=== PATIENT | female | born 1980 | race African-American/Black ===

== ENCOUNTER → 2016-10-30 | Outpatient (CLI) | payer OTHER ==
--- NOTE | 2016-10-30 15:14 | KCIC ---
PROCEDURE MR of the right knee HISTORY Right knee pain. Pain is chronic but worse the last few months. Swelling. COMPARISON None TECHNIQUE Standard multiplanar sequences are obtained. FINDINGS There is mild motion degradation. Mild signal within the medial meniscus. There is subtle violation of the undersurface on a single sagittal slice, but that may be exaggerated by the motion degradation. Signal identified within the lateral meniscus, particularly the posterior horn, with some distortion, compatible with a degenerative tear. The anterior and the posterior cruciate ligaments are intact. Medial collateral ligament is intact. Iliotibial band unremarkable. Fibular collateral ligament, biceps femorals tendon and popliteus tendon are intact. Extensor mechanism is intact. Small joint effusion. There is a tiny loose body identified just posterior to the popliteus in the popliteus recess measuring about 4 millimeters.. There also may be a small body identified within the anterior joint, although this may just represent some nodular fat, obscured due to the motion degradation. No bone lesion. No acute fracture. Severe chondromalacia at the posterior lateral tibial plateau, more moderate elsewhere at the medial and lateral compartments. Mild chondromalacia at the patella. No bone lesion or acute fracture. No significant Mi cyst. IMPRESSION 1. Lateral meniscal tear. 2. Possible medial meniscal tear although this finding may be exaggerated by the motion degradation. 3. Primary osteoarthritis. 4. 1 or 2 small loose bodies. Electronically signed by: Andrea Conti MD (Oct 30, 2016 15:13:40)
== END | disposition home or self-care (01) ==
LOC: KCIC MRI 13:50
PROVIDERS: ATTEND Family Medicine
DX: M25.561 Pain in right knee (principal); M17.11 Unilateral primary osteoarthritis, right knee; S83.281A Other tear of lateral meniscus, current injury, right knee, initial encounter
CPT/HCPCS: 73721

== ENCOUNTER → 2017-06-25 | Day surgery (SDC) | payer OTHER ==
[~2017-06-25] MED LIST: BUPIVACAINE MPF 0.5% 30 ML VIAL. ONE; DEXAMETHASONE SOD PHOS 20 MG/5 ML VIAL. ONE; EPINEPHrine VIAL 30 MG/30 ML VIAL ONE; LIDOCAINE 1% PF 30 ML VIAL. ONE; LIDOCAINE 2% PF Vial for OR 5 ML VIAL. ONE; MIDAZOLAM HCL/PF 2 MG/2 ML VIAL. ONE; ONDANSETRON PF 4 MG/2 ML VIAL. ONE; PROPOFOL 0 ML IV ONE; ceFAZolin 2GM PREMIX 2 GM/50 ML BAG IV ONE; fentaNYL PF VIAL 100 MCG/2 ML VIAL ONE
[2017-06-25 11:32] LABS: NEG OBC UR NEG; POS OBC UR POS
== END | disposition home or self-care (01) ==
LOC: SURG 10:48
PROVIDERS: ATTEND Orthopaedic Surgery Sports Medicine
DX: S83.281A Other tear of lateral meniscus, current injury, right knee, initial encounter (principal); Z53.8 Procedure and treatment not carried out for other reasons; X58.XXXA Exposure to other specified factors, initial encounter; Y93.89 Activity, other specified; Y92.89 Other specified places as the place of occurrence of the external cause; Y99.8 Other external cause status
CPT/HCPCS: 81025; J0171; J0690; J1100; J2250; J2405; J2704; J3010; J3490; J2001

== ENCOUNTER 2018-02-08 16:13 | Observation (INO) | payer OTHER ==
[2018-02-08 16:56] LABS: BILIRUBIN,URINE NEGATIVE (NEG); CLARITY,URINE CLEAR; COLOR,URINE YELLOW; GLUCOSE,URINE NEGATIVE (NEG); NITRITE,URINE NEGATIVE (NEG); PH,URINE 7.5; PROTEIN,URINE NEGATIVE (NEG-TRACE)
[2018-02-08 17:03] LABS: AMPHETAMINE/METHAMPHETAMINE NEG (NEG); BARBITURATES NEG (NEG); BENZODIAZEPINES NEG (NEG); CANNABINOIDS POS (NEG); COCAINE NEG (NEG); ETHANOL, URINE NEG (NEG); METHADONE NEG (NEG); OPIATES NEG (NEG); PHENCYCLIDINE NEG (NEG)
[2018-02-08 17:16] LABS: RBC,URINE RARE /HPF (0-2)
[2018-02-08 17:17] LABS: BACTERIA,URINE MANY /HPF (0-FEW); SQUAMOUS EPITHELIAL CELL,UR FEW /LPF
[2018-02-08] MEDS: BUTORPHANOL 2 MG/ML VIAL. IV (18:14)
[2018-02-08] MEDS: IV RINGERS,LACTATED 1000ML 1,000 ML IV (18:15)
[2018-02-08 18:26] LABS: ADD MAN DIFF? NO
[2018-02-08 18:29] LABS: BASO # 0.1 x10^3/uL (0.0-0.2); BASO % 1 % (0-3); EOS # 0.1 x10^3/uL (0.0-0.7); EOS % 1 % (0-3); HEMATOCRIT 29.3 % (36.0-47.0); LYMPH # 2.4 x10^3/uL (1.0-4.8); LYMPH % 25 % (24-48); MEAN CORPUSCULAR HEMOGLOBIN 25 pg (25-35); MEAN CORPUSCULAR HGB CONC 34 g/dL (31-37); MEAN CORPUSCULAR VOLUME 74 fL (79-100); MONO # 0.8 x10^3/uL (0.0-1.1); MONO % 8 % (0-9); NEUT # 6.2 x10^3uL (1.8-7.7); NEUT % 65 % (31-73); PLATELET COUNT 155 x10^3/uL (140-400); RED BLOOD COUNT 3.94 x10^6/uL (3.50-5.40); RED CELL DISTRIBUTION WIDTH 15.7 % (11.5-14.5); WHITE BLOOD COUNT 9.6 x10^3/uL (4.0-11.0)
[2018-02-08 19:17] LABS: ALBUMIN 2.4 g/dL (3.4-5.0); ALBUMIN/GLOBULIN RATIO 0.6 (1.0-1.7); ALK PHOS 181 U/L (46-116); ALT (SGPT) 11 U/L (14-59); ANION GAP 12 (6-14); AST (SGOT) 13 U/L (15-37); BLOOD UREA NITROGEN 8 mg/dL (7-20); BUN/CREATININE RATIO 13 (6-20); CALCIUM 8.6 mg/dL (8.5-10.1); CARBON DIOXIDE 22 mmol/L (21-32); CHLORIDE 107 mmol/L (98-107); CREATININE 0.6 mg/dL (0.6-1.0); GFR 135.4; GLUCOSE 78 mg/dL (70-99); POTASSIUM 3.7 mmol/L (3.5-5.1); SODIUM 141 mmol/L (136-145); TOTAL BILIRUBIN 0.4 mg/dL (0.2-1.0); TOTAL PROTEIN 6.6 g/dL (6.4-8.2)
[2018-02-08] MEDS: hydrOXYzine IM 50 MG/ML VIAL IM (20:46)
== END 2018-02-08 21:25 | disposition home or self-care (01) ==
LOC: 3 SO LND 16:13
DX: O62.9 Abnormality of forces of labor, unspecified (principal); O26.893 Other specified pregnancy related conditions, third trimester; R10.9 Unspecified abdominal pain; Z3A.37 37 weeks gestation of pregnancy
CPT/HCPCS: 36415; 80053; 80307; 81001; 85025; 87086; 96361; 96372; 96374; G0378; G0379; J3410; J7120

== ENCOUNTER 2018-02-13 18:15 | Observation (INO) | payer OTHER ==
[2018-02-13] MEDS: hydrOXYzine PAMOATE 25 MG CAPSULE PO (19:46)
== END 2018-02-13 19:45 | disposition home or self-care (01) ==
LOC: 3 SO LND 18:15
DX: O62.9 Abnormality of forces of labor, unspecified (principal); O99.89 Other specified diseases and conditions complicating pregnancy, childbirth and the puerperium; M54.9 Dorsalgia, unspecified; Z3A.38 38 weeks gestation of pregnancy
CPT/HCPCS: G0378; G0379; Q0177

== ENCOUNTER 2020-11-06 11:49 | Observation (INO) | payer OTHER ==
[2018-02-20 16:30] VITALS: BP 126/82
[~2020-11-06 11:49] MED LIST changes: -BUPIVACAINE MPF 0.5% 30 ML VIAL. ONE; -DEXAMETHASONE SOD PHOS 20 MG/5 ML VIAL. ONE; +DOCU-109 PO; -EPINEPHrine VIAL 30 MG/30 ML VIAL ONE; +IBUP800T19 PO; -LIDOCAINE 1% PF 30 ML VIAL. ONE; -LIDOCAINE 2% PF Vial for OR 5 ML VIAL. ONE; -MIDAZOLAM HCL/PF 2 MG/2 ML VIAL. ONE; -ONDANSETRON PF 4 MG/2 ML VIAL. ONE; +OXYC1TAB7 PO; -PROPOFOL 0 ML IV ONE; -ceFAZolin 2GM PREMIX 2 GM/50 ML BAG IV ONE; -fentaNYL PF VIAL 100 MCG/2 ML VIAL ONE
[2020-11-06] MEDS ORDERED: IV RINGERS,LACTATED 1000ML 1,000 ML IV SCH (12:45)
[2020-11-06 14:58] LABS: BILIRUBIN,URINE NEGATIVE (NEG); CLARITY,URINE CLOUDY; COLOR,URINE YELLOW; NITRITE,URINE POSITIVE (NEG); PROTEIN,URINE NEGATIVE (NEG-TRACE); UROBILINOGEN,URINE 0.2 mg/dL (0.2 mg/dL)
[2020-11-06 15:07] LABS: AMORPHOUS SEDIMENT,UR PRESENT /HPF; BACTERIA,URINE MODERATE /HPF (0-FEW); RBC,URINE OCC /HPF (0-2)
--- NOTE | 2020-11-06 15:11 | RAD ---
US OB LIMITED Clinical Indication: No heart tones detected. Pt reports she is 24 weeks . LMP 0 Comparison: None. Technique: Multiple grayscale images, color Doppler, and M-mode images of the uterus are obtained. Findings: There is a single intrauterine gestation in breech presentation. The placenta is anterior in location without evidence of placenta previa. The amount of amniotic fluid appears appropriate. Cervical maurisio gth is 3.9 cm. Biometrical data: BPD = 5.02 cm for 21 weeks 1 days. HC = 20.60 cm for 22 weeks 5 days. AC = 17.97 cm for 20 weeks 6 days. FL = 4.12 cm for 20 weeks 3 days. CI ratio = 77.0. HC/AC ratio = 1.15. FL/HC ratio = 20.0. FL/AC ratio = 22.9. Overall, the estimated sonographic gestational age is 22 weeks 4 days for an estimated date of delive ry of 03/08/2021. The estimated date of delivery provided by the last menstrual period is 02/26/2021. E stimated weight is 549 grams. The estimated heart rate is 140 beats per minute. Impression: Single live intrauterine gestation with estimated sonographic gestational age of 22 weeks 4 days. Electronically signed by: Yair Villa MD (11/06/2020 3:09 PM) [facility]
== END 2020-11-06 20:34 | disposition home or self-care (01) ==
LOC: 3 SO LND 11:49
PROVIDERS: ADMIT Obstetrics & Gynecology; ATTEND Obstetrics & Gynecology
DX: O99.891 Other specified diseases and conditions complicating pregnancy (principal); M54.9 Dorsalgia, unspecified; O26.892 Other specified pregnancy related conditions, second trimester; H92.02 Otalgia, left ear; R10.2 Pelvic and perineal pain; O62.9 Abnormality of forces of labor, unspecified; Z3A.24 24 weeks gestation of pregnancy; Z98.891 History of uterine scar from previous surgery
CPT/HCPCS: 59025; 76815; 81001; 87086; G0378; G0379

== ENCOUNTER 2020-11-06 15:31 | Emergency (ER) | payer OTHER ==
[~2020-11-06] VITALS: Ht 175.3 cm; Wt 100.9 kg
--- NOTE | 2020-11-06 15:49 | PHYS DOC ---
Past Medical History Past Medical History: No Pertinent History, Kidney Stone Past Surgical History: Other Additional Past Surgical Histo: lithotripsy, thyroidectomy Alcohol Use: None Drug Use: None General Adult EDM: Chief Complaint: EARACHE/EAR PAIN HPI: HPI: Patient is a 40 year old presented to the ER for evaluation of a lesion in front of left earlobe for about 2 weeks. NO pain. Review of Systems: Review of Systems: Constitutional: Denies fever or chills. [] Eyes: Denies change in visual acuity. [] HENT: Denies nasal congestion or sore throat. [] Respiratory: Denies cough or shortness of breath. [] Cardiovascular: Denies chest pain or edema. [] GI: Denies abdominal pain, nausea, vomiting, bloody stools or diarrhea. [] : Denies dysuria. [] Musculoskeletal: Denies back pain or joint pain. [] Integument: Denies rash. [] Neurologic: Denies headache, focal weakness or sensory changes. [] Endocrine: Denies polyuria or polydipsia. [] Lymphatic: Denies swollen glands. [] Psychiatric: Denies depression or anxiety. [] Heart Score: Risk Factors: Risk Factors: DM, Current or recent (<one month) smoker, HTN, HLP, family history of CAD, obesity. Risk Scores: Score 0 - 3: 2.5% MACE over next 6 weeks - Discharge Home Score 4 - 6: 20.3% MACE over next 6 weeks - Admit for Clinical Observation Score 7 - 10: 72.7% MACE over next 6 weeks - Early Invasive Strategies Allergies: Allergies: Allergies Coded Allergies Type Severity Reaction Last Updated Verified No Known Drug Allergies 12/05/16 No Physical Exam: PE: Constitutional: Well developed, well nourished, no acute distress, non-toxic appearance. [] HENT: Normocephalic, atraumatic, bilateral external ears normal, oropharynx moist, no oral exudates, nose normal. There is small nontender mass at the base of left tragus. Not tender to palpation, no redness. Eyes: PERRLA, EOMI, conjunctiva normal, no discharge. [] Neck: Normal range of motion, no tenderness, supple, no stridor. [] Skin: Warm, dry, no erythema, no rash. [] Back: No tenderness, no CVA tenderness. [] Extremities: No tenderness, no cyanosis, no clubbing, ROM intact, no edema. [] Neurologic: Alert and oriented X 3, normal motor function, normal sensory function, no focal deficits noted. [] Psychologic: Affect normal, judgement normal, mood normal. [] EKG: EKG: [] Radiology/Procedures: Radiology/Procedures: [] Course & Med Decision Making: Course & Med Decision Making Pertinent Labs and Imaging studies reviewed. (See chart for details) [] Dragon Disclaimer: Dragon Disclaimer: This electronic medical record was generated, in whole or in part, using a voice recognition dictation system. Departure Departure Impression: Primary Impression: Ganglion cyst Disposition: 01 DC HOME SELF CARE/HOMELESS Condition: STABLE Referrals: NO PCP (PCP) CK CAMPOS MD Please call this ENT doctor for follow up next week Patient Instructions: Ganglion Cyst KRISTINE ALMONTE DO Nov 06, 2020 15:49
[2020-11-06 16:10] VITALS: BP 134/76
== END 2020-11-06 16:10 | disposition home or self-care (01) ==
LOC: ER 15:31
DX: M67.48 Ganglion, other site (principal); H92.02 Otalgia, left ear; Z90.89 Acquired absence of other organs; Z98.890 Other specified postprocedural states; Z87.442 Personal history of urinary calculi
CPT/HCPCS: 99281

== ENCOUNTER → 2020-11-09 | Outpatient (CLI) | payer OTHER ==
[2020-11-06 16:10] VITALS: BP 134/76
[~2020-11-09] MED LIST changes: +FERR325T14 PO; +IBUP-1060 PO; +NITR100C62 PO; +OXYC1TAB15 PO
[2020-11-09 15:59] LABS: HEMATOCRIT 30.8 % (36.0-47.0); HEMOGLOBIN 10.5 g/dL (12.0-15.5); MEAN CORPUSCULAR HEMOGLOBIN 26 pg (25-35); MEAN CORPUSCULAR HGB CONC 34 g/dL (31-37); MEAN CORPUSCULAR VOLUME 76 fL (79-100); PLATELET COUNT 152 x10^3/uL (140-400); RED BLOOD COUNT 4.05 x10^6/uL (3.50-5.40); RED CELL DISTRIBUTION WIDTH 15.7 % (11.5-14.5); WHITE BLOOD COUNT 11.7 x10^3/uL (4.0-11.0)
[2020-11-09 16:21] LABS: FREE T4 1.03 ng/dL (0.76-1.46); THYROID STIM HORMONE (TSH) 0.727 uIU/mL (0.358-3.74)
[2020-11-10 19:10] LABS: RUBELLA IGG ANTIBODY 3.32 index (Immune >0.99)
== END ==
LOC: LAB 14:57
PROVIDERS: ATTEND Obstetrics & Gynecology
DX: Z34.92 Encounter for supervision of normal pregnancy, unspecified, second trimester (principal); Z3A.00 Weeks of gestation of pregnancy not specified
CPT/HCPCS: 36415; 81220; 84439; 84443; 85027; 85660; 86592; 86703; 86762; 86787; 86803; 86850; 86900; 86901; 87340

== ENCOUNTER → 2021-01-28 | Outpatient (CLI) | payer OTHER ==
[~2021-01-28] MED LIST changes: -FERR325T14 PO; -IBUP-1060 PO; -NITR100C62 PO; -OXYC1TAB15 PO
[2021-01-28 15:37] LABS: HEMATOCRIT 29.9 % (36.0-47.0); RED BLOOD COUNT 4.12 x10^6/uL (3.50-5.40); RED CELL DISTRIBUTION WIDTH 16.3 % (11.5-14.5); WHITE BLOOD COUNT 10.6 x10^3/uL (4.0-11.0)
== END ==
LOC: LAB 14:21
PROVIDERS: ATTEND Obstetrics & Gynecology
DX: Z34.93 Encounter for supervision of normal pregnancy, unspecified, third trimester (principal); Z3A.33 33 weeks gestation of pregnancy
CPT/HCPCS: 36415; 82950; 85027; 86850; 86900; 86901

== ENCOUNTER → 2021-02-06 | Outpatient (CLI) | payer OTHER ==
[2021-02-06 12:16] LABS: FREE T4 0.97 ng/dL (0.76-1.46); THYROID STIM HORMONE (TSH) 0.316 uIU/mL (0.358-3.74)
== END ==
LOC: LAB 11:05
PROVIDERS: ATTEND Obstetrics & Gynecology
DX: Z34.93 Encounter for supervision of normal pregnancy, unspecified, third trimester (principal); Z3A.00 Weeks of gestation of pregnancy not specified
CPT/HCPCS: 36415; 82947; 84439; 84443

== ENCOUNTER → 2021-02-15 | Outpatient (CLI) | payer OTHER ==
[~2021-02-15] MED LIST changes: +FERR325T14 PO; +IBUP-1060 PO; +NITR100C62 PO; +OXYC1TAB15 PO
== END ==
LOC: LAB 15:33
PROVIDERS: ATTEND Obstetrics & Gynecology
DX: Z01.812 Encounter for preprocedural laboratory examination (principal); Z20.822 Contact with and (suspected) exposure to COVID-19; O00.01 Abdominal pregnancy with intrauterine pregnancy
CPT/HCPCS: U0003; U0005